=== PATIENT | male | born 1995 | race Caucasian/White ===

== ENCOUNTER 2017-04-24 17:39 | Emergency (ER) | payer OTHER ==
[~2017-04-24] VITALS: Ht 165.1 cm; Wt 68.0 kg
[~2017-04-24 17:39] MED LIST: BENTYL20 MG PO; HYDROCODONE-AP1 EAC6 PO; NOHOMEMEDICATIONS; PREDNISONE 20 M20 MG PO; TRILEPTAL 300300 MG PO; ZOFRAN ODT4 MG PO
[2017-04-24] MEDS ORDERED: CELEXA20 MG PO (17:46)
[2017-04-24 18:21] LABS: ABSOLUTE BASOPHILS 0.1 thou/uL (0.0-0.2); ABSOLUTE EOSINOPHILS 0.1 thou/uL (0.0-0.7); ABSOLUTE LYMPHOCYTES 1.7 thou/uL (0.8-5.3); ABSOLUTE MONOCYTES 0.2 thou/uL (0.0-1.2); ABSOLUTE NEUTROPHILS 2.4 thou/uL (1.6-8.1); BASOPHILS 1.1 %; EOSINOPHILS 1.9 %; HEMATOCRIT 42.9 % (42.0-52.0); HEMOGLOBIN 14.8 gm/dL (14.0-18.0); LYMPHOCYTES 39.3 %; MCH 30.3 pg (26.0-34.0); MCHC 34.6 g/dL (28.0-37.0); MCV 87.7 fL (80.0-100.0); MONOCYTES 4.6 %; MPV 8.7 fl. (7.2-11.1); NUCLEATED RBCS 0 /100WBC; PLATELET COUNT* 187 thou/uL (150-400); POLYS 53.1 %; RDW-CV 12.8 % (10.5-14.5); WBC 4.5 thou/uL (4.0-11.0)
[2017-04-24] MEDS ORDERED: PROAIR HFA8.5 GM INH (18:54)
[2017-04-24] MEDS ORDERED: NAPROSYN500 MG PO (18:54)
[2017-04-24] MEDS ORDERED: ROBAXIN 750 MG750 M1 PO (18:54)
[2017-04-24 19:01] LABS: CALCIUM 8.1 mg/dL (8.5-10.1); POTASSIUM 3.5 mmol/L (3.5-5.1)
[2017-04-24 19:05] LABS: ALBUMIN 3.8 g/dL (3.4-5.0); TOTAL BILIRUBIN 0.4 mg/dL (<0.1-1.0); TOTAL PROTEIN 7.1 g/dL (6.4-8.2)
[2017-04-24 19:14] VITALS: BP 109/63
--- NOTE | 2017-04-25 12:21 | EKG ---
[place] [address] ELECTROCARDIOGRAM REPORT Name: STEFANIESISSY Lona Room: [facility]#: [id number] Admission: 04/24/17 Attend Phys: Discharge: 04/24/17 Date of : [birth year] Report #: [id number] THIS REPORT FOR: //name// [facility] ED Test Date: 2017-04-24 Test Time: 17:45:35 Pat Name: SISSY WATTS Department: Room: Gender: M [employer]: : 1995 Requested By: Iris Andrade Order Number: [id number] MD: Hitesh Maya Measurements Intervals [place] Rate: 73 P: 57 WI: 133 QRS: 62 QRSD: 90 T: 56 QT: 395 QTc: 436 Interpretive Statements Sinus rhythm Baseline wander in lead(s) V1,V4,V6 Compared to ECG 11/14/2012 21:38:02 Sinus tachycardia no longer present Electronically Signed On 04-25-2017 12:20:59 OPERATIONS ARCHITECT by Hitesh Maya [email or web address] <ELECTRONICALLY SIGNED> By: Hitesh Maya MD, [facility] 04/25/17 1220 1745 174 Hitesh Maya MD, [facility] /EPI
== END 2017-04-24 19:16 | disposition home or self-care (01) ==
LOC: M.ERS 17:39
PROVIDERS: Physician Assistant
DX: R07.89 Other chest pain (principal)